=== PATIENT | female | born 1965 | race Asian ===

== ENCOUNTER 2017-11-07 07:35 | Emergency (ER) | payer OTHER ==
[2017-11-07 07:37] VITALS: BP 132/84
[2017-11-07] MEDS ORDERED: HYDROcodone-ACET 10/325MG TAB PO ONE (08:15)
[2017-11-07] MEDS ORDERED: KETOROLAC TROMETH 60MG/2ML VIAL IM ONE (08:15)
== END 2017-11-07 09:22 | disposition home or self-care (01) ==
LOC: ER 07:35 → EDBD 07:35 → ER 09:22
DX: R51 Headache (principal); M54.2 Cervicalgia; M54.9 Dorsalgia, unspecified; E11.9 Type 2 diabetes mellitus without complications; E78.5 Hyperlipidemia, unspecified; V49.49XA Driver injured in collision with other motor vehicles in traffic accident, initial encounter; Y93.89 Activity, other specified; Y99.8 Other external cause status; Y92.410 Unspecified street and highway as the place of occurrence of the external cause
CPT/HCPCS: 70450